=== PATIENT | female | born 1945 | race Caucasian/White ===

== ENCOUNTER 2018-01-01 12:09 | Observation (INO) | payer OTHER ==
[~2018-01-01] VITALS: Ht 160 cm; Wt 71.8 kg
[~2018-01-01 12:09] MED LIST changes: -TYLENOL REGULA325 MG PO
[2018-01-01 15:25] VITALS: BP 128/61
[2018-01-01 16:11] VITALS: BP 139/76
[2018-01-01 19:35] VITALS: BP 159/78
[2018-01-02 00:30] VITALS: BP 149/76
[2018-01-02 04:04] VITALS: BP 148/71
[2018-01-02 07:09] LABS: HEMATOCRIT 43.5 % (36.0-46.0); HEMOGLOBIN 13.9 G/DL (11.9-15.5); MCH 28.1 PG (29.0-34.0); MCV 87.9 FL (83-99); PLATELET COUNT 288 K/uL (156-360); RBC DIS.WIDTH-CV 14.5 % (11.8-14.6); RED BLOOD COUNT 4.95 M/uL (3.80-5.20); WHITE BLOOD COUNT 7.4 K/uL (4.1-10.2)
[2018-01-02 07:48] LABS: ALKALINE PHOSPHATASE 85 IU/L (3-129); ALT (GPT) 23 IU/L (3-49); AST (GOT) 13 IU/L (2-34); CHLORIDE 105 MEQ/L (99-109); CREATININE 0.7 MG/DL (0.6-1.3); GFR ESTIMATE (CALCULATED) > 59 mL/min/; GLUCOSE 129 mg/dL (70-99); POTASSIUM 3.5 MEQ/L (3.7-5.4); SODIUM 142 MEQ/L (136-147); TOTAL BILIRUBIN 0.5 MG/DL (0.0-1.0); TOTAL PROTEIN 5.9 G/DL (6.4-8.3); UREA NITROGEN (BUN) 12 mg/dL (9-23)
[2018-01-02 08:31] VITALS: BP 146/78
[2018-01-02 11:50] VITALS: BP 169/82
[2018-01-02] MEDS ORDERED: TYLENOL REGULA325 MG PO (12:55)
== END 2018-01-02 13:50 | disposition home or self-care (01) ==
LOC: 3EAST 12:09 → ENRESERV 12:09 → 3EAST 14:46
PROVIDERS: Internal Medicine
DX: J95.811 Postprocedural pneumothorax (principal); C34.92 Malignant neoplasm of unspecified part of left bronchus or lung; Z85.3 Personal history of malignant neoplasm of breast; E11.9 Type 2 diabetes mellitus without complications; I10 Essential (primary) hypertension; E78.5 Hyperlipidemia, unspecified; Z88.2 Allergy status to sulfonamides; Z82.5 Family history of asthma and other chronic lower respiratory diseases; Z79.84 Long term (current) use of oral hypoglycemic drugs; Z79.82 Long term (current) use of aspirin; Z92.3 Personal history of irradiation; Z87.891 Personal history of nicotine dependence
CPT/HCPCS: 71045; 80053; 85027; G0378; G8978 GP CH; G8979 GP CH; G8980 GP CH; J1650

== ENCOUNTER → 2018-01-01 | Outpatient (CLI) | payer OTHER ==
[~2018-01-01] VITALS: Ht 160 cm; Wt 77.0 kg
[~2018-01-01] MED LIST: AMARYL1 MG PO; AMLODIPINE BESY10 MG PO; ASPIR 8181 M1 PO; BREO ELLIPTA 21 EACH IH; FLONASE16 G1 BOTH NARES; IPRATROPIUM BRO30 ML BOTH NARES; LOSARTAN POTAS100 MG PO; OMEPRAZOLE20 M2 PO; ROSUVASTATIN CA10 MG PO; TYLENOL REGULA325 MG PO; VENTOLIN HFA18 GM IH; VITAMIN D310000 UNI1 PO; ZYRTEC10 M2 PO
== END | disposition home or self-care (01) ==
LOC: OPR 12-28 09:00 → EDSTATUS 09:00 → OPR 09:00
PROVIDERS: Internal Medicine Pulmonary Disease
DX: C34.12 Malignant neoplasm of upper lobe, left bronchus or lung (principal); J95.811 Postprocedural pneumothorax; Y84.8 Other medical procedures as the cause of abnormal reaction of the patient, or of later complication, without mention of misadventure at the time of the procedure; I10 Essential (primary) hypertension; E11.9 Type 2 diabetes mellitus without complications; K21.9 Gastro-esophageal reflux disease without esophagitis; J44.9 Chronic obstructive pulmonary disease, unspecified; Z85.3 Personal history of malignant neoplasm of breast; Z87.891 Personal history of nicotine dependence; Z79.82 Long term (current) use of aspirin; Z79.84 Long term (current) use of oral hypoglycemic drugs
CPT/HCPCS: 32557; 77012; 82948; 88305; 88341 TC; 88342 TC; C1769

== ENCOUNTER → 2018-01-16 | Outpatient (CLI) | payer OTHER ==
[~2018-01-16] MED LIST changes: +TYLENOL REGULA325 MG PO
== END | disposition home or self-care (01) ==
LOC: CDC 14:36
DX: C34.90 Malignant neoplasm of unspecified part of unspecified bronchus or lung (principal)
CPT/HCPCS: 93000

== ENCOUNTER 2018-01-25 11:49 | Day surgery (SDC) | payer OTHER ==
[~2018-01-25] VITALS: Ht 160 cm; Wt 76.2 kg
[~2018-01-25 11:49] MED LIST changes: +VITAMIN D31000 UNI2 PO; -VITAMIN D310000 UNI1 PO
[2018-01-25 12:27] VITALS: BP 156/72
[2018-01-25 12:56] LABS: PTT 28.7 SEC (25-37)
[2018-01-25] MEDS ORDERED: HYDROCODON-ACE1 EAC7 PO (14:51)
[2018-01-25] MEDS ORDERED: COLACE100 MG PO (14:51)
[2018-01-25] MEDS ORDERED: MOTRIN400 MG PO (14:51)
[2018-01-25 15:30] VITALS: BP 137/97
[2018-01-25 16:25] VITALS: BP 136/63
== END 2018-01-25 16:41 | disposition home or self-care (01) ==
LOC: SDC 11:49
PROVIDERS: Thoracic Surgery (Cardiothoracic Vascular Surgery)
PROC: 07B74ZX Excision of Thorax Lymphatic, Percutaneous Endoscopic Approach, Diagnostic (ICD-10-PCS; principal; 2018-01-25)
DX: C34.12 Malignant neoplasm of upper lobe, left bronchus or lung (principal); E11.9 Type 2 diabetes mellitus without complications; Z85.3 Personal history of malignant neoplasm of breast; I10 Essential (primary) hypertension; E78.1 Pure hyperglyceridemia; Z92.3 Personal history of irradiation; Z87.891 Personal history of nicotine dependence; Z80.1 Family history of malignant neoplasm of trachea, bronchus and lung; Z82.5 Family history of asthma and other chronic lower respiratory diseases; Z83.3 Family history of diabetes mellitus; Z82.3 Family history of stroke
CPT/HCPCS: 71045; 82948; 85610; 85730; 86850; 86900; 86901; 88305; J0690; J2250; J2405; J2710; J7643

== ENCOUNTER 2018-02-08 04:08 | Inpatient (IN) | payer OTHER ==
[~2018-02-08] VITALS: Ht 160 cm; Wt 80.3 kg
[~2018-02-08 04:08] MED LIST changes: +COLACE100 MG PO; +HYDROCODON-ACE1 EAC7 PO; +MOTRIN400 MG PO
[2018-02-08 07:35] LABS: PTT 30.3 SEC (25-37)
[2018-02-08 20:00] VITALS: BP 139/70
[2018-02-09] VITALS (9 sets, daily range): BP systolic 128–168; BP diastolic 71–96
[2018-02-09 06:31] LABS: HEMATOCRIT 40.1 % (36.0-46.0); HEMOGLOBIN 13.3 G/DL (11.9-15.5); MCH 28.6 PG (29.0-34.0); MCHC 33.2 G/DL (30.0-36.0); MCV 86.2 FL (83-99); PLATELET COUNT 332 K/uL (156-360); RBC DIS.WIDTH-CV 14.8 % (11.8-14.6); RBC DIS.WIDTH-SD 46.9 % (39-53); RED BLOOD COUNT 4.65 M/uL (3.80-5.20); WHITE BLOOD COUNT 13.9 K/uL (4.1-10.2)
[2018-02-09 06:52] LABS: CHLORIDE 104 MEQ/L (99-109); CREATININE 0.6 MG/DL (0.6-1.3); GFR ESTIMATE (CALCULATED) > 59 mL/min/; GLUCOSE 163 mg/dL (70-99); POTASSIUM 3.9 MEQ/L (3.7-5.4); SODIUM 138 MEQ/L (136-147); UREA NITROGEN (BUN) 8 mg/dL (9-23)
[2018-02-10] VITALS (21 sets, daily range): BP systolic 120–162; BP diastolic 63–97
[2018-02-10 04:46] LABS: HEMATOCRIT 41.3 % (36.0-46.0); HEMOGLOBIN 13.8 G/DL (11.9-15.5); MCH 28.9 PG (29.0-34.0); MCHC 33.4 G/DL (30.0-36.0); MCV 86.4 FL (83-99); PLATELET COUNT 324 K/uL (156-360); RBC DIS.WIDTH-CV 14.8 % (11.8-14.6); RBC DIS.WIDTH-SD 47.3 % (39-53); RED BLOOD COUNT 4.78 M/uL (3.80-5.20); WHITE BLOOD COUNT 11.8 K/uL (4.1-10.2)
[2018-02-10 05:01] LABS: CHLORIDE 105 mEq/L (99-109); POTASSIUM 3.8 mEq/L (3.7-5.4); SODIUM 143 mEq/L (136-147)
[2018-02-10 05:07] LABS: CREATININE 0.6 mg/dL (0.6-1.3); GFR ESTIMATE (CALCULATED) > 59 mL/min/
[2018-02-10 05:08] LABS: UREA NITROGEN (BUN) 8 mg/dL (9-23)
[2018-02-10 05:17] LABS: GLUCOSE 117 mg/dL (70-99)
[2018-02-11] VITALS (21 sets, daily range): BP systolic 93–155; BP diastolic 63–94
[2018-02-12] VITALS (17 sets, daily range): BP systolic 88–134; BP diastolic 54–72
[2018-02-12] MEDS ORDERED: DOCUSATE SODIU100 MG PO (17:20)
[2018-02-12] MEDS ORDERED: MOTRIN600 MG PO (17:20)
[2018-02-12] MEDS ORDERED: LOPRESSOR25 MG PO (17:20)
[2018-02-12] MEDS ORDERED: DIGOXIN125 MCG PO (17:20)
[2018-02-12] MEDS ORDERED: PERCOCET 5/31 TABLET PO (17:20)
[2018-02-13 00:16] VITALS: BP 127/61
[2018-02-13 04:33] VITALS: BP 114/62
[2018-02-13 07:46] VITALS: BP 124/63
[2018-02-13 11:59] VITALS: BP 101/55
[2018-02-13 16:04] VITALS: BP 151/60
[2018-02-13] MEDS ORDERED: LOPRESSOR25 MG PO (18:00)
== END 2018-02-13 20:00 | disposition home or self-care (01) | DRG 165 ==
LOC: CANRESERV 04:08 → ENRESERV 04:08 → 4WEST 06:36 → 2SOUTH 06:36 → ENRESERV 15:44 → 4WEST 17:55 → ENRESERV 02-12 17:48 → 4WEST 02-12 17:48 → ENRESERV 02-12 17:50 → 3EAST 02-12 21:34
PROVIDERS: Thoracic Surgery (Cardiothoracic Vascular Surgery)
PROC: 0BTG0ZZ Resection of Left Upper Lung Lobe, Open Approach (ICD-10-PCS; principal; 2018-02-08)
PROC: 07B70ZX Excision of Thorax Lymphatic, Open Approach, Diagnostic (ICD-10-PCS; principal; 2018-02-08)
DX: C34.12 Malignant neoplasm of upper lobe, left bronchus or lung (principal); I10 Essential (primary) hypertension; E78.1 Pure hyperglyceridemia; E11.9 Type 2 diabetes mellitus without complications; R91.1 Solitary pulmonary nodule; Z88.2 Allergy status to sulfonamides; Z87.891 Personal history of nicotine dependence; Z83.3 Family history of diabetes mellitus; Z82.5 Family history of asthma and other chronic lower respiratory diseases; Z92.3 Personal history of irradiation; Z85.3 Personal history of malignant neoplasm of breast; K59.00 Constipation, unspecified; Z79.4 Long term (current) use of insulin
CPT/HCPCS: 71045; 71046; 80048; 82948; 85027; 85610; 85730; 86850; 86900; 86901; 86920; 87641; 88305; 88309; 94010; 94640; 94640 76; 94667; 94760; 94799; 97530 GO; 97530 GP; 99202; J0131; J0690; J1100; J1160; J1170; J1644; J1885; J2250; J2405; J2710; J3010; J7050; J7120; J7643; S0020